=== PATIENT | male | born 1950 | race Caucasian/White ===

== ENCOUNTER → 2018-11-19 | Outpatient (CLI) | payer MEDICARE ==
--- NOTE | 2018-11-19 11:58 | ECHOS ---
STRESS ECHOCARDIOGRAM DATE OF SERVICE: 11/19/2018 INDICATIONS: Exertional chest pain. MEDICATIONS: BASELINE HEART RATE: 62 BASELINE BLOOD PRESSURE: 139/80 MAXIMUM HEART RATE: 152 MAXIMUM BLOOD PRESSURE: 193/74 85% MPHR: 130 100% MPHR: 153 METS: 11 MAXIMUM STAGE REACHED: IV TOTAL EXERCISE TIME: 10 minutes CLINICAL INFORMATION: Baseline EKG shows sinus rhythm, normal axis, normal intervals. Patient exercised on Ricky protocol for a total of 10 minutes achieving 11 METs, 85% of predicted maximal heart rate and complained of chest pressure 6 to 7 minutes into exercise. There was [address]-segment depression in the inferolateral leads. Baseline echo shows normal left ventricular size and systolic function. Basal inferior wall appears hypokinetic. Postexercise, there is exercise-induced wall motion abnormality involving the apex. CONCLUSIONS: 1. Good exercise tolerance. 2. Abnormal stress test by EKG criteria. 3. Abnormal stress echo. MMODL / IJN: [id number] /
== END | disposition home or self-care (01) ==
LOC: RADNMMAIN 08:49
PROVIDERS: ATTEND Internal Medicine Geriatric Medicine
DX: R93.1 Abnormal findings on diagnostic imaging of heart and coronary circulation (principal)
CPT/HCPCS: 93351

== ENCOUNTER → 2018-11-19 | Outpatient (CLI) | payer MEDICARE ==
[2018-11-19 15:04] LABS: HCT 47.3 % (39.0-53.0); HGB 15.4 gm/dL (13.0-17.5); MCH 28.4 pg (25.0-35.0); MCHC 32.5 g/dL (31.0-37.0); MCV 87.3 fL (80.0-100.0); Platelet Count 266 k/uL (150-450); RBC 5.42 m/uL (4.30-5.90); RDW 13.3 % (11.5-15.5); WBC 7.2 k/uL (3.8-10.6)
[2018-11-19 15:18] LABS: ALT 27 U/L (21-72); AST 23 U/L (17-59); African American GFR (CKD) >90 (>60 ml/min/1.73 sqM); Anion Gap 7 mmol/L; Blood Urea Nitrogen 18 mg/dL (9-20); Carbon Dioxide 33 mmol/L (22-30); Chloride 103 mmol/L (98-107); Potassium 4.5 mmol/L (3.5-5.1); Sodium 143 mmol/L (137-145)
== END | disposition home or self-care (01) ==
LOC: LABWHC1 14:34
PROVIDERS: ATTEND Internal Medicine Cardiovascular Disease
DX: Z01.812 Encounter for preprocedural laboratory examination (principal); R07.2 Precordial pain
CPT/HCPCS: 36415; 80051; 82565; 84450; 84460; 84520; 85027

== ENCOUNTER → 2018-12-10 | Outpatient (CLI) | payer MEDICARE ==
[2018-12-10 09:23] LABS: Basophils % (A) 1 %; Eosinophils # (A) 0.2 k/uL (0-0.7); Eosinophils % (A) 6 %; HCT 44.8 % (39.0-53.0); Lymphocytes # (A) 1.1 k/uL (1.0-4.8); Lymphocytes % (A) 27 %; MCH 28.9 pg (25.0-35.0); MCHC 33.4 g/dL (31.0-37.0); MCV 86.6 fL (80.0-100.0); Mean Platelet Volume 7.3; Monocytes # (A) 0.2 k/uL (0-1.0); Monocytes % (A) 6 %; Neutrophils # (A) 2.3 k/uL (1.3-7.7); Neutrophils % (A) 58 %; Platelet Count 228 k/uL (150-450); RBC 5.17 m/uL (4.30-5.90); RDW 14.7 % (11.5-15.5); WBC 3.9 k/uL (3.8-10.6)
[2018-12-10 16:37] LABS: African American GFR (CKD) 102.1 (60.0-200.0); Albumin 4.3 g/dL (3.80-4.90); Albumin/Globulin Ratio 2.15 (1.60-3.17); Anion Gap 6.2 mmol/L (4.00-12.00); BUN/Creat Ratio 21.11 Ratio (12.00-20.00); Calcium 9.3 mg/dL (8.7-10.3); Carbon Dioxide 25.8 mmol/L (21.6-31.8); Chol/HDL Ratio 4.52; LDL Cholesterol,Calculated 136.6 mg/dL (0.0-131.0); Potassium 5.1 mmol/L (3.5-5.5); Total Bilirubin 0.7 mg/dL (0.3-1.2); Total Protein 6.3 g/dL (6.2-8.2); VLDL Calculation 18.4 mg/dL (5.00-40.00)
[2018-12-10 20:32] LABS: Hemoglobin A1C 5.5 % (4.0-6.0)
== END | disposition home or self-care (01) ==
LOC: LABWHC1 08:23
PROVIDERS: ATTEND Internal Medicine Geriatric Medicine
DX: C43.9 Malignant melanoma of skin, unspecified (principal); E78.5 Hyperlipidemia, unspecified; R73.9 Hyperglycemia, unspecified; R00.1 Bradycardia, unspecified
CPT/HCPCS: 36415; 80053; 80061; 83036; 84443; 85025

== ENCOUNTER → 2019-04-13 | Outpatient (CLI) | payer MEDICARE ==
[2019-04-13 12:22] LABS: HCT 45.4 % (39.0-53.0); HGB 15.2 gm/dL (13.0-17.5); MCH 29.5 pg (25.0-35.0); MCHC 33.4 g/dL (31.0-37.0); MCV 88.4 fL (80.0-100.0); Mean Platelet Volume 7.5; Platelet Count 255 k/uL (150-450); RBC 5.14 m/uL (4.30-5.90); RDW 12.5 % (11.5-15.5); WBC 4.8 k/uL (3.8-10.6)
[2019-04-13 12:38] LABS: African American GFR (CKD) >90 (>60 ml/min/1.73 sqM); Anion Gap 8 mmol/L; Blood Urea Nitrogen 16 mg/dL (9-20); Carbon Dioxide 30 mmol/L (22-30); Chloride 103 mmol/L (98-107); Non-African American GFR(CKD) >90 (>60 ml/min/1.73 sqM); Potassium 5.2 mmol/L (3.5-5.1); Sodium 141 mmol/L (137-145)
== END | disposition home or self-care (01) ==
LOC: LABPAT 11:29
PROVIDERS: ATTEND Internal Medicine Interventional Cardiology
DX: Z01.812 Encounter for preprocedural laboratory examination (principal); R94.39 Abnormal result of other cardiovascular function study
CPT/HCPCS: 36415; 80051; 82565; 84520; 85027

== ENCOUNTER 2019-04-16 06:35 | Day surgery (SDC) | payer MEDICARE ==
[~2019-04-16 06:35] MED LIST: ALPRAZolam 0.25 MG TAB PO PRN; ALPRAZolam 0.5 MG TAB PO PRN; ASPIRIN 325 MG TAB PO STA; ATORVASTATIN 80 MG TAB PO STA; NITROGLYCERIN SL TABS 0.4 MG TAB SUBLINGUAL PRN; SODIUM CHLORIDE 0.9% 1,000 ML in EMPTY BAG 1 BAG IV ONE
[2019-04-16] MEDS ORDERED: SODIUM CHLORIDE 0.9% 1,000 ML IV ONE (07:06)
[2019-04-16] MEDS ORDERED: HEPARIN SODIUM 1,000 UN/ML (10ML VL) ONE (07:16)
[2019-04-16] MEDS ORDERED: fentaNYL (PF) 50 MCG/ML 2 ML AMP ONE (07:16)
[2019-04-16] MEDS ORDERED: LIDOCAINE 1% INJ 10MG/ML (20 ML MDV) ONE (07:16)
[2019-04-16] MEDS ORDERED: VERAPAMIL 2.5 MG/ML 2 ML AMP ONE (07:16)
[2019-04-16 07:18] VITALS: RESP 16
[2019-04-16] MEDS ORDERED: fentaNYL (PF) 50 MCG/ML 2 ML AMP IVP ONE (07:36)
[2019-04-16] MEDS ORDERED: VERAPAMIL SYRINGE (5 MG/10 ML) INTRAARTER ONE (07:46)
[2019-04-16] MEDS ORDERED: LIDOCAINE 1% INJ 10MG/ML (20 ML MDV) SQ ONE (07:46)
[2019-04-16] MEDS ORDERED: PRASUGREL 10 MG TAB ONE ×2 (08:00)
[2019-04-16] MEDS ORDERED: BIVALIRUDIN BOLUS 250 MG/50 ML IV ONE (08:00)
[2019-04-16] MEDS ORDERED: BIVALIRUDIN 250 MG in SODIUM CHLORIDE 0.9% 50 ML IV ONE (08:00)
[2019-04-16] MEDS ORDERED: PRASUGREL 10 MG TAB PO ONE (08:06)
[2019-04-16] MEDS ORDERED: IOPAMIDOL-370 125ML BTL INJ ONE (08:09)
[2019-04-16] MEDS ORDERED: IOPAMIDOL-370 100ML BTL INJ ONE (08:29)
[2019-04-16] MEDS ORDERED: ZOLPIDEM 5 MG TAB PO PRN (08:45)
[2019-04-16] MEDS ORDERED: MAG HYDROX/AL HYDROX/SIMETH 30 ML CUP PO PRN (08:45)
[2019-04-16] MEDS ORDERED: NITROGLYCERIN SL TABS 0.4 MG TAB SUBLINGUAL PRN (08:45)
[2019-04-16] MEDS ORDERED: SODIUM CHLORIDE 0.9% 1,000 ML IV SCH (08:45)
[2019-04-16] MEDS ORDERED: ATROPINE SULFATE 0.1 MG/ML 10ML SYRINGE IV PRN (08:45)
[2019-04-16] MEDS ORDERED: RX INFO: IV CONTRAST WAS GIVEN 1 EACH MISC MISCELLANE PRN (08:45)
--- NOTE | 2019-04-16 09:02 | CC ---
CARDIAC CATHETERIZATION REPORT Mr. Pruitt is a 68-year-old male with a family history of premature coronary artery disease who complained of episode of exertional chest discomfort, underwent a stress echocardiogram that revealed evidence of inducible ischemia in the apex with EKG changes. In view of that, recommendation made regarding cardiac catheterization. The procedures, risks, and complications were discussed with the patient who is in full understanding and agreement. 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 Using Xylocaine anesthesia and Seldinger technique, a 6-[place] sheath was introduced in the right radial artery. Selective right and left coronary angiography performed using 5-[place] 3.5 bend right and left Renee catheter, multiple views of the coronary artery including hemiaxial views were obtained. Following that, a 5-[place]izen [place] tight pigtail catheter was introduced in his left ventricle and pressures were calculated. Following that, catheter removed, images were reviewed. FINDINGS: LEFT MAIN: This is a short-size vessel bifurcating into left circumflex, left anterior descending artery. Left main coronary artery has no evidence of high-grade stenosis. LEFT ANTERIOR DESCENDING ARTERY: This is a large size vessel, reaching toward the apex with a wraparound apex segment giving rise to a proximal diagonal branch. At the proximal segment of the LAD, there is a 95% stenosis, the rest of the vessel has mild disease without any evidence of high-grade stenosis. LEFT CIRCUMFLEX: This is a nondominant vessel, giving rise to three obtuse marginal branches, the first one is very proximal. The second obtuse marginal branch has a 60% plaque proximally. The rest of the vessel has no high-grade stenosis. RIGHT CORONARY ARTERY: This is a large dominant vessel, bifurcating distally in PDA and posterolateral segment and branches. The right coronary artery as well as branches have no evidence of obstructive coronary artery disease. LEFT VENTRICULOGRAM: Left ventriculogram was not performed. HEMODYNAMICS: There was no gradient across the aortic valve. The left ventricular end- diastolic pressure was 12-16 mmHg. CONCLUSION: 1. 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 2. Moderate disease in the second obtuse marginal branch. RECOMMENDATION: In view of the finding, I recommend proceeding with angioplasty and stenting of the LAD. The procedures, risks, and complication were discussed with the patient who is in full understanding and agreement. MMODL / IJN: [id number] /
--- NOTE | 2019-04-16 09:23 | PTCA ---
PERCUTANEOUSTRANS CORORONARY ANGIOGRAPHY Mr. Pruitt is a 68-year-old male with a family history of premature coronary disease who presented with symptoms of chest discomfort and abnormal stress echocardiogram, underwent cardiac catheterization, was found to have critical stenosis involving the proximal LAD. In view of that, recommendation was made regarding angioplasty and stenting. The procedures, risks, and complication were discussed with the patient who is in full understanding and agreement. PROCEDURE: A 6-[place] EBU 3.75 guiding catheter introduced into the system after cannulating the left main a 0.014 balanced medium weight J-wire was advanced across the lesion, positioned distally. Then a 2.5 x 12 mm Trek balloon was advanced and one inflation at 10 atmospheres was done. Following that the balloon was removed and a 2.75 x 12 mm Xience Hannah stent was advanced, deployed and post-dilated at 16 atmospheres. Following that, the balloon was removed and a 3.0 x 8 mm NC Trek balloon was advanced and one inflation at 14 atmospheres was done. After the last inflation, after appropriate wait. the balloon to go withdrawn back in the guiding catheter images were obtained repeated. Those ages reveal stable successful stenting. At that point, the guiding catheter, the balloon and the guidewire were removed. The sheath was removed. Hemostasis was obtained with deployment of a TR band. There was no immediate complication patient is returned to his room in stable condition. Of note, the patient received Angiomax per protocol as well as oral loading dose of Effient. He had chest discomfort and mild chest discomfort and EKG changes with the inflation that resulted in procedure. He received intra-arterial verapamil. RESULTS: Successful stenting of the proximal left anterior descending artery with reduction of stenosis from 95% to 0%. RECOMMENDATIONS: Patient will be continued on aspirin, Effient, and statin. The importance of dual antiplatelet treatment were discussed with the patient and his family and they are in full understanding and agreement. Duration of procedure 41 minutes. MMODL / IJN: [id number] /
[2019-04-16 09:31] LABS: Cholesterol 251 mg/dL (<200); HDL Cholesterol 39 mg/dL (40-60); LDL Cholesterol,Calculated 187 mg/dL (0-99); Triglycerides 125 mg/dL (<150)
--- NOTE | 2019-04-16 09:32 | LTR ---
DATE OF SERVICE: 04/16/2019 RE: Matias Pruitt Dear Dr. Whitt; I had the pleasure to perform cardiac catheterization and coronary angioplasty and stenting on Mr. Pruitt at [facility] on April 16, and a full copy of the procedure note will be forwarded to you. In brief, he underwent successful stenting of the proximal LAD using a drug-eluting stent. I am hopeful that this procedure will stabilize his status and thank you again for allowing me to participate in this patient's care. Please feel free to call for any questions. . Sincerely yours, MD VICK Miranda / ANTONY: [id number] /
[2019-04-16] MEDS: ASPIRIN 81 MG PO SCH (10:09)
[2019-04-16 15:08] VITALS: BMI 25.8
[2019-04-16] MEDS ORDERED: ATORVASTATIN 80 MG TAB PO SCH (21:00)
[2019-04-17 07:02] LABS: African American GFR (CKD) >90 (>60 ml/min/1.73 sqM); Anion Gap 6 mmol/L; Blood Urea Nitrogen 15 mg/dL (9-20); Calcium 9.3 mg/dL (8.4-10.2); Carbon Dioxide 27 mmol/L (22-30); Chloride 107 mmol/L (98-107); Glucose 101 mg/dL (74-99); Non-African American GFR(CKD) 88 (>60 ml/min/1.73 sqM); Potassium 4.3 mmol/L (3.5-5.1); Sodium 140 mmol/L (137-145)
--- NOTE | 2019-04-17 09:25 | PN ---
PROGRESS NOTE Mr. Pruitt is a 68-year-old male who presented with abnormal stress test and chest discomfort, underwent cardiac catheterization, was found to have critical stenosis involving the proximal LAD, underwent stenting of that vessel. He is doing well this morning. He has no chest pain. No dizziness. No palpitation. No nausea. He continued to be on aspirin once a day, Lipitor 80 mg daily, Effient 10 mg daily. PHYSICAL EXAMINATION: Blood pressure running in the 120 to 140 with a heart rate in the 60s. LUNGS: Clear. HEART: Regular rate and rhythm. S1, S2. No S3. No rub. ABDOMEN: Soft nontender. EXTREMITIES: No edema. Right radial pulse intact. LAB DATA: Cholesterol 251 with an LDL of 187, BUN and creatinine 15 and 0.9. Potassium 4.3. EKG no acute changes. IMPRESSION: 1. Status post stenting of the left anterior descending artery. 2. Hyperlipidemia. RECOMMENDATION: Patient will be discharged home today and followed as an outpatient. MMODL / IJN: [id number] /
[2019-04-17] MEDS: PRASUGREL 10 MG TAB PO SCH ×2 (10:03)
[2019-04-17] MEDS: ASPIRIN 81 MG PO SCH (10:03)
[2019-04-17 10:52] VITALS: BP 141/80; PULSE 74; TEMP 98.2
== END 2019-04-17 10:56 | disposition home or self-care (01) ==
LOC: CATHCVL 06:35 → 3SCARD 08:25 → CATHCVL 04-17 10:56
PROVIDERS: ATTEND Internal Medicine Interventional Cardiology
DX: I25.10 Atherosclerotic heart disease of native coronary artery without angina pectoris (principal); R94.39 Abnormal result of other cardiovascular function study; R93.1 Abnormal findings on diagnostic imaging of heart and coronary circulation; Z82.49 Family history of ischemic heart disease and other diseases of the circulatory system; Z79.82 Long term (current) use of aspirin; Z79.899 Other long term (current) drug therapy
CPT/HCPCS: 93458; 80061; 80048; 84132; C9600; C1769 ×2; C1887; C1725 ×2; C1874; C1894; J2001; J3010; J0583; Q9967 ×2